=== PATIENT | female | born 1985 | race Caucasian/White ===

== ENCOUNTER 2020-08-10 10:50 | Emergency (ER) | payer OTHER ==
--- NOTE | 2020-08-10 13:04 | RAD REPORT ---
EXAM DESCRIPTION: RAD - Foot Right 3 View - 08/10/2020 12:55 pm CLINICAL HISTORY: PAIN COMPARISON: No comparisons FINDINGS: Mildly angulated fracture involves the distal aspect of the proximal phalanx of the fourth toe.
--- NOTE | 2020-08-10 14:03 | EDPHYS ---
Physician Documentation [facility] Name: Barbara Cho Age: 34 yrs Sex: Female : 1985 Arrival Date: 08/10/2020 Time: 10:52 Bed 24 Private MD: ED Physician Adarsh Stein HPI: 08/10 18:34 This 34 yrs old Female presents to ER via Wheelchair with complaints of Fall kdr Injury - 35 wks preg, Foot Injury. 18:34 Details of fall: The patient fell from an upright position, while walking. Onset: The kdr symptoms/episode began/occurred suddenly, just prior to arrival. Associated injuries: The patient sustained right fourth toe, right fifth toe and Right fourth toenail. Severity of symptoms: At their worst the symptoms were mild, moderate, just prior to arrival, in the emergency department the symptoms are unchanged. The patient has not experienced similar symptoms in the past. The patient has not recently seen a physician. 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 - Social history:: Smoking status: . ROS: 18:34 Constitutional: Negative for fever, chills, and weight loss. kdr 18:34 MS/extremity: Positive for pain, swelling, tenderness, of the right fourth toe, right fifth toe, Right fourth toenail and Right fifth toenail. Exam: 18:34 Constitutional: This is a well developed, well nourished patient who is awake, alert, kdr and in no acute distress. 18:34 Musculoskeletal/extremity: ROM: limited active range of motion, limited passive range of motion, in the right fourth toe, right fifth toe, Right fourth toenail and Right fifth toenail, Circulation is intact in all extremities. Sensation intact. Vital Signs: 11:58 BP 130 / 97; Pulse 88; Resp 17; Temp 98(TE); Pulse Ox 100% on R/A; Weight 88 kg; Height tw2 5 ft. 4 in. (162.56 cm) (R); Pain 8/10; 13:01 BP 125 / 91; Pulse 97; Resp 17; Pulse Ox 99% on R/A; Pain 7/10; ap3 13:57 BP 125 / 95; Pulse 88; Resp 16; Pulse Ox 100% on R/A; ap3 11:58 Body Mass Index 33.30 (88.00 kg, 162.56 cm) tw2 11:58 pt states "babies HR was good and no contractions so they werent concerned about baby tw2 right now since i didnt fall on my stomach" MDM: 14:01 Patient medically screened. kdr 18:34 Data reviewed: vital signs, nurses notes, radiologic studies. Counseling: I had a kdr detailed discussion with the patient and/or guardian regarding: the historical points, exam findings, and any diagnostic results supporting the discharge/admit diagnosis, radiology results, the need for outpatient follow up. 08/10 12:38 Order name: Foot Right 3 View EDMS Administered Medications: No medications were administered Disposition: 08/10/20 14:01 Discharged to Home. Impression: Nondisplaced fracture of proximal phalanx of right lesser toe(s). - Condition is Stable. - Discharge Instructions: Toe Fracture, Wgnd-go-[place]. - Medication Reconciliation Form, Thank You Letter form. - Follow up: Private Physician; When: 2 - 3 days; Reason: If symptoms return, Further diagnostic work-up, Recheck today's complaints, Continuance of care, Re-evaluation by your physician. - Problem is new. - Symptoms have improved. Signatures: Dispatcher [employer] [facility] Adarsh Stein MD MD kdr Wise, Tara, RN RN tw2 June Correa RN RN ap3 Corrections: (The following items were deleted from the chart) 12:38 12:08 Ankle Right 3 View+RAD.RAD.BRZ ordered. [facility] 14:15 14:01 08/10/2020 14:01 Discharged to Home. Impression: Nondisplaced fracture of ap3 proximal phalanx of right lesser toe(s). Condition is Stable. Forms are Medication Reconciliation Form, Thank You Letter, Antibiotic Education, Prescription Opioid Use. Follow up: Private Physician; When: 2 - 3 days; Reason: If symptoms return, Further diagnostic work-up, Recheck today's complaints, Continuance of care, Re-evaluation by your physician. Problem is new. Symptoms have improved. kdr
--- NOTE | 2020-08-10 14:03 | ER ---
Nurse's Notes [facility] Name: Barbara Cho Age: 34 yrs Sex: Female : 1985 Arrival Date: 08/10/2020 Time: 10:52 Bed 24 Private MD: Diagnosis: Nondisplaced fracture of proximal phalanx of right lesser toe(s) Presentation: 08/10 10:55 Note EllyRN notified of need for pt to be checked out first up stairs to monitor tw2 the baby, pt states "im already 3 cm dilated and so much effaced". pt taken by w/c to L\\T\\D at this time. 11:58 Chief complaint: Patient states: i fell down three stairs. not sure how it happened it tw2 happened so fast. i believe my toe on my right foot caught the stairs and im pretty sure i ripped the 4th toenail. i can roll my ankle both ways but if i put weight on it it is very painful. Coronavirus screen: At this time, the client does not indicate any symptoms associated with coronavirus-19. Ebola Screen: Patient denies travel to an Ebola-affected area in the 21 days before illness onset. Initial Sepsis Screen: Does the patient meet any 2 criteria? No. Patient's initial sepsis screen is negative. Does the patient have a suspected source of infection? No. Patient's initial sepsis screen is negative. Risk Assessment: Do you want to hurt yourself or someone else? Patient reports no desire to harm self or others. Onset of symptoms was August 10, 2020. 11:58 Method Of Arrival: Wheelchair tw2 11:58 Acuity: DENISE 4 tw2 Triage Assessment: 10:55 General: Appears in no apparent distress. uncomfortable, Behavior is cooperative, tw2 appropriate for age, anxious. Pain: Complains of pain in right foot. Neuro: Level of Consciousness is awake, alert, obeys commands, Oriented to person, place, time, situation. Respiratory: Airway is patent Respiratory effort is even, unlabored, Respiratory pattern is regular, symmetrical. : Denies cramping vaginal bleeding. 12:04 General: Appears in no apparent distress. well groomed, Behavior is calm, cooperative, tw2 appropriate for age. Pain: Complains of pain in right foot. Musculoskeletal: Reports pain in right foot "very painful to put weight on it". 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 - Social history:: Smoking status: . Screenin:31 Abuse screen: Denies threats or abuse. Nutritional screening: No deficits noted. ap3 Tuberculosis screening: No symptoms or risk factors identified. Fall Risk Fall in past 12 months (25 points). Secondary diagnosis (15 points) . Assessment: 12:28 General: Appears in no apparent distress. comfortable, Behavior is calm, cooperative, ap3 appropriate for age. Pain: Complains of pain in right foot Pain does not radiate. Pain currently is 4 out of 10 on a pain scale. at worst was 10 out of 10 on a pain scale. Quality of pain is described as sharp, tender, throbbing, Pain began suddenly, Alleviated by rest, Aggravated by increased activity, repositioning, weight bearing. Neuro: Level of Consciousness is awake, alert, obeys commands, Oriented to person, place, time, situation, Speech is normal. Cardiovascular: Capillary refill < 3 seconds Pulses are palpable in right dorsalis pedis artery and left dorsalis pedis artery. Respiratory: Airway is patent Respiratory effort is even, unlabored, Respiratory pattern is regular, symmetrical. GI: No signs and/or symptoms were reported involving the gastrointestinal system. : Denies cramping vaginal bleeding. EENT: No signs and/or symptoms were reported regarding the EENT system. Derm: No signs and/or symptoms reported regarding the dermatologic system. Musculoskeletal:. Injury Description: patient fell downstairs, injuring her right foot. 13:35 General: nurse assisted patient to the restroom. ap3 Vital Signs: 11:58 BP 130 / 97; Pulse 88; Resp 17; Temp 98(TE); Pulse Ox 100% on R/A; Weight 88 kg; Height tw2 5 ft. 4 in. (162.56 cm) (R); Pain 8/10; 13:01 BP 125 / 91; Pulse 97; Resp 17; Pulse Ox 99% on R/A; Pain 7/10; ap3 13:57 BP 125 / 95; Pulse 88; Resp 16; Pulse Ox 100% on R/A; ap3 11:58 Body Mass Index 33.30 (88.00 kg, 162.56 cm) tw2 11:58 pt states "babies HR was good and no contractions so they werent concerned about baby tw2 right now since i didnt fall on my stomach" ED Course: 10:52 Patient arrived in ED. am2 10:55 Arm band placed on. tw2 12:01 Triage completed. tw2 12:12 June Correa, RN is Primary Nurse. ap3 12:22 Adarsh Stein MD is Attending Physician. kdr 12:33 Patient has correct armband on for positive identification. Bed in low position. Call ap3 light in reach. Side rails up X2. Pulse ox on. NIBP on. Door closed. Noise minimized. 12:55 Foot Right 3 View In Process Unspecified. EDMS 13:27 Pt visited by mother, sister. ap3 14:14 No provider procedures requiring assistance completed. Patient did not have IV access ap3 during this emergency room visit. 14:14 Dressings: nurse coral taped 4th toe to 3rd toe. ap3 Administered Medications: No medications were administered Outcome: 14:01 Discharge ordered by . kdr 14:15 Discharged to home via ambulance, with family. ap3 14:15 Condition: good 14:15 Discharge instructions given to patient, Instructed on discharge instructions, follow up and referral plans. Demonstrated understanding of instructions, follow-up care. 14:15 Patient left the ED. ap3 Signatures: Dispatcher [employer] EDMS Adarsh Stein MD MD kdr Coral Rose RN RN tw2 June Austin am2 June Correa RN RN ap3
[2020-08-10 14:25] VITALS: TEMP 98
[2020-08-10 14:28] VITALS: BP 125/95; O2SAT 100
== END 2020-08-10 14:15 | disposition home or self-care (01) ==
LOC: ER 10:50
DX: O24.419 Gestational diabetes mellitus in pregnancy, unspecified control (principal); O9A.213 Injury, poisoning and certain other consequences of external causes complicating pregnancy, third trimester; S92.514A Nondisplaced fracture of proximal phalanx of right lesser toe(s), initial encounter for closed fracture; Z3A.35 35 weeks gestation of pregnancy; W19.XXXA Unspecified fall, initial encounter; Y93.01 Activity, walking, marching and hiking; Z79.4 Long term (current) use of insulin
CPT/HCPCS: 99283